=== PATIENT | female | born 1955 | race Two or more races ===

== ENCOUNTER 2017-04-07 18:17 | Inpatient (IN) | payer MEDICAID ==
[~2017-04-07] VITALS: Ht 162.6 cm; Wt 82.2 kg
[2017-04-07] MEDS ORDERED: SODIUM CHLORIDE FLUSH 10ML SYR IVF ONE (19:00)
[2017-04-07 19:04] LABS: HEMOGLOBIN 13.7 g/dL (11.7-16.4); WHITE BLOOD COUNT 12.7 x10^3/uL (3.4-10)
[2017-04-07 19:13] LABS: ASPARTATE AMINO TRANSFERASE 39 U/L (15-37); BLOOD UREA NITROGEN 13 mg/dL (7-18)
[2017-04-07] MEDS ORDERED: ONDA4TAB13 SL (20:02)
[2017-04-07] MEDS ORDERED: GLIM4TAB2 PO (20:02)
[2017-04-07] MEDS ORDERED: ATOR-2 PO (20:02)
[2017-04-07] MEDS ORDERED: AMLO2.5T PO (20:02)
[2017-04-07] MEDS ORDERED: LISI-167 PO (20:02)
[2017-04-07] MEDS ORDERED: METF500T4 PO (20:02)
[2017-04-07] MEDS ORDERED: SODIUM CHLORIDE 0.9% 1,000ML IVBOLUS ONE (20:30)
[2017-04-07] MEDS ORDERED: MORPHINE SULFATE 4 MG/ML, 1ML IVPush PRN (20:30)
[2017-04-07] MEDS ORDERED: CEFOTETAN PMX 1GM/50ML 50 ML IV ONE (20:30)
[2017-04-07] MEDS ORDERED: ONDANSETRON 2MG/ML, 2ML IVPush ONE (20:30)
[2017-04-07] MEDS ORDERED: morphine SULFATE 10 MG/ML, 1ML ONE (20:32)
[2017-04-07] MEDS ORDERED: ONDANSETRON 2MG/ML, 2ML ONE ×2 (20:32→21:48)
[2017-04-07] MEDS ORDERED: CEFOTETAN PMX 1GM/50ML 50 ML ONE ×2 (20:33→21:03)
[2017-04-07] MEDS ORDERED: SODIUM CHLORIDE 0.9% 1,000 ML IV SCH (20:52)
[2017-04-07] MEDS ORDERED: ONDANSETRON 2MG/ML, 2ML IVPush PRN ×2 (21:00)
[2017-04-07] MEDS ORDERED: hydrALAzine 20 MG/ML, 1ML IV PRN (21:00)
[2017-04-07] MEDS ORDERED: ATORVASTATIN 80 MG TABLET PO SCH (21:00)
[2017-04-07] MEDS ORDERED: DEXTROSE 50%, 50ML SYRINGE IVPush PRN (21:00)
[2017-04-07] MEDS ORDERED: OXYcodone 5 MG/5 ML ORAL.SOL UDC PO PRN (21:00)
[2017-04-07] MEDS ORDERED: DOCUSATE 100 MG CAPSULE PO PRN (21:00)
[2017-04-07] MEDS ORDERED: LABETALOL 5MG/ML, 20ML IVPush PRN (21:00)
[2017-04-07] MEDS ORDERED: HYDROcodone/APAP 5/325 TABLET PO PRN (21:00)
[2017-04-07] MEDS ORDERED: EPHEDRINE 50 MG/ML, 1ML IVPush PRN (21:00)
[2017-04-07] MEDS ORDERED: morphine SULFATE 10 MG/ML, 1ML IVPush PRN ×2 (21:00→23:10)
[2017-04-07] MEDS ORDERED: HYDROmorphone 1 MG/ML, 1ML IV PRN (21:00)
[2017-04-07] MEDS ORDERED: ACETAMINOPHEN 325 MG TABLET PO PRN ×2 (21:00)
[2017-04-07] MEDS ORDERED: LABETALOL 5MG/ML, 20ML IV PRN (21:00)
[2017-04-07] MEDS ORDERED: METOPROLOL 1 MG/ML, 5ML IV PRN (21:00)
[2017-04-07] MEDS ORDERED: FENTANYL PF 100 MCG/2ML IV PRN (21:00)
[2017-04-07] MEDS ORDERED: BISACODYL 10 MG SUPP PR PRN (21:00)
[2017-04-07] MEDS ORDERED: GLUCAGON 1 MG IM PRN (21:00)
[2017-04-07] MEDS ORDERED: ALBUTEROL SULFATE 2.5 MG/3 ML NPPB PRN (21:00)
[2017-04-07] MEDS ORDERED: POLYETHYLENE GLYCOL 17 GM PACKET PO PRN (21:00)
[2017-04-07] MEDS ORDERED: ATORVASTATIN 40 MG TABLET PO SCH (21:00)
[2017-04-07] MEDS ORDERED: DEXTROSE 4 GM TAB.CHEW PO PRN (21:00)
[2017-04-07] MEDS ORDERED: MIDAZOLAM 1 MG/ML, 2ML ONE (21:03)
[2017-04-07] MEDS ORDERED: FENTANYL PF 100 MCG/2ML ONE (21:03)
[2017-04-07] MEDS ORDERED: SUCCINYLCHOLINE 20 MG/ML, 10ML ONE (21:03)
[2017-04-07] MEDS ORDERED: GLYCOPYRROLATE 0.4 MG/2 ML, 2ML ONE (21:03)
[2017-04-07] MEDS ORDERED: ROCURONIUM 10 MG/ML ONE ×2 (21:03→21:24)
[2017-04-07] MEDS ORDERED: NEOSTIGMINE 1 MG/ML, 10ML ONE (21:03)
[2017-04-07] MEDS ORDERED: PROPOFOL 10 MG/ML, 20ML ONE (21:03)
[2017-04-07] MEDS ORDERED: EPINEPHRINE 1 MG/ML, 1ML ONE (21:18)
[2017-04-07] MEDS ORDERED: BUPIVACAINE/PF 0.5% ONE (21:18)
[2017-04-07] MEDS ORDERED: LABETALOL 5MG/ML, 20ML ONE (21:24)
[2017-04-07] MEDS ORDERED: ACETAMINOPHEN 650 MG/20.3 ML UDC ONE (22:19)
[2017-04-07] MEDS ORDERED: OXYcodone 5 MG/5 ML ORAL.SOL UDC ONE (22:19)
[2017-04-08 00:23] VITALS: BP 139/63
[2017-04-08] MEDS: metFORMIN 500 MG TABLET PO SCH ×2 (00:52→09:03)
[2017-04-08] MEDS: INSULIN ASPART 100 UNITS/ML, PEN SQ-INSULIN SCH ×3 (00:52→12:15)
[2017-04-08] MEDS: SODIUM CHLORIDE FLUSH 10ML SYR IVF SCH ×2 (00:53→09:00)
[2017-04-08 02:53] VITALS: BP 119/55
[2017-04-08 05:44] LABS: HEMATOCRIT 35.5 % (34.6-47.8); WHITE BLOOD COUNT 10.9 x10^3/uL (3.4-10)
[2017-04-08 05:57] LABS: ASPARTATE AMINO TRANSFERASE 44 U/L (15-37); BLOOD UREA NITROGEN 12 mg/dL (7-18)
[2017-04-08 06:50] VITALS: BP 113/52
[2017-04-08] MEDS ORDERED: LISINOPRIL 10 MG TABLET PO SCH (09:00)
[2017-04-08] MEDS ORDERED: AMLODIPINE 2.5 MG TABLET PO SCH (09:00)
[2017-04-08] MEDS ORDERED: GLIMEPIRIDE 4 MG TABLET PO SCH (09:00)
[2017-04-08 09:04] VITALS: BP 128/59
[2017-04-08] MEDS ORDERED: ONDA4TAB10 PO (13:05)
[2017-04-08] MEDS ORDERED: HYDR-3240 PO (13:05)
[2017-04-08 14:15] VITALS: BP 133/57
== END 2017-04-08 15:15 | disposition home or self-care (01) | DRG 418 ==
LOC: OR 21:24 → EDBD 21:30 → EDIP 21:30 → 4NOR 22:58 → DCLOUNGE 04-08 14:46
PROVIDERS: ADMIT Internal Medicine; ATTEND Internal Medicine
PROC: 0FT44ZZ Resection of Gallbladder, Percutaneous Endoscopic Approach (ICD-10-PCS; principal; 2017-04-07 21:00)
DX: K80.00 Calculus of gallbladder with acute cholecystitis without obstruction (principal); E87.1 Hypo-osmolality and hyponatremia; E11.65 Type 2 diabetes mellitus with hyperglycemia; I11.9 Hypertensive heart disease without heart failure; E78.5 Hyperlipidemia, unspecified; I25.10 Atherosclerotic heart disease of native coronary artery without angina pectoris; Z79.84 Long term (current) use of oral hypoglycemic drugs; Z83.3 Family history of diabetes mellitus; Z95.5 Presence of coronary angioplasty implant and graft
CPT/HCPCS: 36415; 76700; 80053; 82962; 83036; 85025; 85610; 88304; 96365; 96375; J0171; J1815; J2250; J2405; J2704; J2710; J3010; J3490; J0330; J2270; J7030; S0074

== ENCOUNTER 2018-10-06 13:17 | Emergency (ER) | payer MEDICAID ==
[~2018-10-06] VITALS: Ht 162.6 cm; Wt 74.5 kg
[~2018-10-06 13:17] MED LIST: AMLO2.5T5 PO; ATOR-2 PO; GLIM4TAB2 PO; HYDR-3240 PO; LISI-167 PO; METF500T17 PO; ONDA4TAB10 PO; ONDA4TAB13 SL
[2018-10-06 13:23] VITALS: BP 156/81
--- NOTE | 2018-10-06 13:58 | NUR ---
PT HERE FOR LEFT SCIATICA PAIN SHE HAS HAD FOR 6 MONTHS. PT REPORTS HER PAIN DOES NOT GET BETTER AND WAS SEEN AT [facility] AND SENT TO US. PT DENIES BOWEL CONTROL LOSS. PT STILL ABLE TO AMBULATE.
[2018-10-06] MEDS ORDERED: CYCLOBENZAPRINE 10 MG TABLET PO ONE (14:00)
[2018-10-06] MEDS ORDERED: ONDANSETRON ODT 4 MG PO ONE (14:00)
[2018-10-06] MEDS ORDERED: HYDROcodone/APAP 5/325 TABLET PO ONE (14:00)
[2018-10-06] MEDS ORDERED: HYDROcodone/APAP 5/325 TABLET ONE (14:09)
[2018-10-06] MEDS ORDERED: ONDANSETRON ODT 4 MG ONE (14:09)
[2018-10-06] MEDS ORDERED: CYCLOBENZAPRINE 10 MG TABLET ONE (14:09)
--- NOTE | 2018-10-06 14:17 | NUR ---
PT MEDICATED FOR PAIN.
--- NOTE | 2018-10-06 14:54 | NUR ---
Patient/Caregiver given discharge instructions and they have confirmed that they understand the instructions. Patient ambulatory with steady gait.
== END 2018-10-06 14:56 | disposition home or self-care (01) ==
LOC: ED 14:50
DX: M54.42 Lumbago with sciatica, left side (principal); E78.00 Pure hypercholesterolemia, unspecified; E78.5 Hyperlipidemia, unspecified; I25.2 Old myocardial infarction; I10 Essential (primary) hypertension; E11.9 Type 2 diabetes mellitus without complications; Z79.899 Other long term (current) drug therapy
CPT/HCPCS: 72110; 99284; J7512; Q0162

== ENCOUNTER 2019-06-12 14:54 | Emergency (ER) | payer MEDICAID ==
[~2019-06-12] VITALS: Ht 147.3 cm; Wt 75.2 kg
[~2019-06-12 14:54] MED LIST changes: -GLIM4TAB2 PO; +GLIM4TAB4 PO
[2019-06-12 15:10] VITALS: BP 132/72
--- NOTE | 2019-06-12 15:36 | NUR ---
[facility]SULT[facility] SERVICE AT BEDSIDE FOR EVALUATION ASSISTANCE.
--- NOTE | 2019-06-12 15:39 | NUR ---
"I HAVE PAIN IN MY LEFT LEG AND IN MY HIP I HAVE A BALL THAT RADIATES PAIN INTO MY LEG AND I CAN'T EVEN SLEEP. I HAVE A LOT OF TIME WITH IT ABOUT 4 YEARS. I'M HERE TO SEE IF THEY CAN DO A GOOD STUDY TO FIND OUT WHAT I HAVE OR SEND ME TO A SPECIALIST". DENIES ANY RECENT CHANGES.
[2019-06-12] MEDS ORDERED: DIAZEPAM 5 MG TABLET ONE (15:47)
[2019-06-12] MEDS ORDERED: KETOROLAC 30 MG/1 ML ONE (15:47)
[2019-06-12] MEDS ORDERED: KETOROLAC 30 MG/1 ML IM ONE (16:00)
[2019-06-12] MEDS ORDERED: DIAZEPAM 5 MG TABLET PO ONE (16:00)
--- NOTE | 2019-06-12 16:10 | NUR ---
DISCHARGE NSTRUCTIONS REVIEWED
== END 2019-06-12 16:26 | disposition home or self-care (01) ==
LOC: ED 16:07
DX: M54.41 Lumbago with sciatica, right side (principal); G89.29 Other chronic pain; M79.662 Pain in left lower leg; M25.552 Pain in left hip; M25.562 Pain in left knee; M79.652 Pain in left thigh; Z72.9 Problem related to lifestyle, unspecified; Z75.9 Unspecified problem related to medical facilities and other health care
CPT/HCPCS: 96372; 99283; J1885